=== PATIENT | male | born 1950 | race Caucasian/White ===

== ENCOUNTER 2016-09-16 09:20 | Inpatient (IN) | payer MEDICARE ==
[~2016-09-16] VITALS: Ht 180.3 cm; Wt 84.0 kg
[2016-09-16] MEDS ORDERED: ASPIRIN 81 MG TAB.CHEW PO ONE (09:30)
[2016-09-16 09:50] LABS: CALCIUM 9.1 mg/dL (8.5-10.1); POTASSIUM 3.9 mmol/L (3.5-5.1)
[2016-09-16 09:55] LABS: ALBUMIN 3.8 g/dL (3.4-5.0); TOTAL BILIRUBIN 0.3 mg/dL (0.2-1.0); TOTAL PROTEIN 7.8 g/dL (6.4-8.2)
[2016-09-16] MEDS ORDERED: ONDANSETRON PF 4 MG/2 ML VIAL. IV ONE (10:00)
[2016-09-16] MEDS: NITROGLYCERIN SUBLINGUAL 0.4 MG BOTTLE OF 25. SL PRN ×2 (10:00→10:11)
--- NOTE | 2016-09-16 10:08 | RAD ---
Portable chest, 09/16/2016: History: Chest pain, shortness of breath The heart size and pulmonary vascularity are normal. No pulmonary infiltrates are seen. There is no evidence of pleural fluid. IMPRESSION: No acute cardiopulmonary abnormality is detected
[2016-09-16 10:10] LABS: BASO % 1 % (0-3); EOS % 1 % (0-3); HEMOGLOBIN 15.8 g/dL (13.0-17.5); LYMPH # 1.3 x10^3/uL (1.0-4.8); LYMPH % 13 % (24-48); MEAN CORPUSCULAR HEMOGLOBIN 32 pg (25-35); MEAN CORPUSCULAR HGB CONC 34 g/dL (31-37); MEAN CORPUSCULAR VOLUME 92 fL (79-100); MONO % 8 % (0-9); NEUT % 78 % (31-73); PLATELET COUNT 225 x10^3/uL (140-400); RED BLOOD COUNT 5.01 x10^6/uL (4.30-5.70); RED CELL DISTRIBUTION WIDTH 13.9 % (11.5-14.5); WHITE BLOOD COUNT 10.3 x10^3/uL (4.0-11.0)
[2016-09-16 10:11] LABS: BASO # 0.1 x10^3/uL (0.0-0.2)
[2016-09-16] MEDS: FENTANYL PF 100 MCG/2 ML VIAL. IV PRN ×3 (10:17→13:53)
[2016-09-16 10:31] LABS: INR 1.1 (0.8-1.1); PROTHROMBIN TIME PATIENT 13.3 SEC (11.7-14.0)
--- NOTE | 2016-09-16 10:45 | ED.ADGEN ---
Past Medical History Past Medical History: No Pertinent History Past Surgical History: Tonsillectomy Alcohol Use: Sober Drug Use: None Adult General Chief Complaint Chief Complaint: CHEST PAIN HPI HPI Patient is a 66 year old man, who denies any past history, but states that he has not seen a doctor in "a long time", who presents the emergency department with a complaint of chest pain, pain in the left arm, and then pain that also extended into the right arm, that began around 6:00 this morning. He states he has been coming and going since that time, associated with nausea, denies any shortness of breath, any weakness numbness or tingling, states he's had intermittent headache as well. Denies any injuries, denies any similar symptoms previously. No vomiting, no diarrhea, states he is having some mild epigastric abdominal pain associated with these symptoms, denies any pain at this time. Has not previously had a cardiac evaluation or other evaluation in general for at least the past 6 years. No travel or surgery, history of DVT or PE. Describes the chest pain as a tightness, states that the arm pain began first in the left upper extremity, a sort of aching feeling. Review of Systems Review of Systems Constitutional: Denies fever or chills. [] Eyes: Denies change in visual acuity. [] HENT: Denies nasal congestion or sore throat. [] Respiratory: Denies cough or shortness of breath. [] Cardiovascular: Midsternal chest pain, no edema. Associated with left and right arm pain extending down into his wrist. GI: Denies abdominal pain, nausea, vomiting, bloody stools or diarrhea. [] : Denies dysuria. [] Musculoskeletal: Denies back pain or joint pain. [] Integument: Denies rash. [] Neurologic: Denies headache, focal weakness or sensory changes. [] Endocrine: Denies polyuria or polydipsia. [] Lymphatic: Denies swollen glands. [] Psychiatric: Denies depression or anxiety. [] Current Medications Current Medications Current Medications Medications (Trade) Dose Ordered Sig/Katelyn Start Time Stop Time Status Last Admin Dose Admin Aspirin (Children'S Aspirin) 324 mg 1X ONCE 09/16/16 09:30 09/16/16 09:50 DC 09/16/16 09:58 324 MG Fentanyl Citrate (Fentanyl 2ml Vial) 25 mcg PRN Q15MIN PRN 1/21/17 09:30 09/17/16 09:29 09/16/16 13:53 25 MCG Nitroglycerin (Nitrostat) 0.4 mg PRN Q5MIN PRN 09/16/16 09:30 09/17/16 09:29 09/16/16 10:11 0.4 MG Ondansetron HCl (Zofran) 4 mg 1X ONCE 09/16/16 10:00 09/16/16 10:01 DC 09/16/16 09:59 4 MG Allergies Allergies Allergies Coded Allergies Type Severity Reaction Last Updated Verified calcium carbonate Allergy Intermediate Rash 09/16/16 Yes magnesium Allergy Intermediate Rash 09/16/16 Yes codeine Adverse Reaction Intermediate Nausea 09/16/16 Yes Physical Exam Physical Exam Constitutional: Well developed, well nourished, no acute distress, non-toxic appearance. [] HENT: Normocephalic, atraumatic, bilateral external ears normal, oropharynx moist, no oral exudates, nose normal. [] Eyes: PERRLA, EOMI, conjunctiva normal, no discharge. [] Neck: Normal range of motion, no tenderness, supple, no stridor. [] Cardiovascular:Heart rate regular rhythm, no murmur, S1, S2, no rubs or gallops. Patient with mild anterior chest wall tenderness, not reducing symptoms. [] Lungs & Thorax: Bilateral breath sounds clear to auscultation, no wheezing, rhonchi, rales. No crepitus. [] Abdomen: Bowel sounds normal, soft, no tenderness, no rebound, rigidity, no guarding, no masses, no pulsatile masses. [] Skin: Warm, dry, no erythema, no rash. [] Back: No tenderness, no CVA tenderness. [] Extremities: No tenderness, no cyanosis, no clubbing, ROM intact, no edema. Negative Homans sign. [] Neurologic: Alert and oriented X 3, normal motor function, normal sensory function, no focal deficits noted. [] Psychologic: Affect normal, judgement normal, mood normal. [] Current Patient Data Vital Signs Vital Signs Date Time Temp Pulse Resp B/P Pulse Ox O2 Delivery O2 Flow Rate FiO2 09/16/16 10:30 64 18 147/72 99 Room Air 09/16/16 09:31 98.6 98.6 Lab Values Laboratory Tests Test 09/16/16 09:30 White Blood Count 10.3x10^3/uL (4.0-11.0) Red Blood Count 5.01x10^6/uL (4.30-5.70) Hemoglobin 15.8g/dL (13.0-17.5) Hematocrit 46.0% (39.0-53.0) Mean Corpuscular Volume 92fL (79-100) Mean Corpuscular Hemoglobin 32pg (25-35) Mean Corpuscular Hemoglobin Concent 34g/dL (31-37) Red Cell Distribution Width 13.9% (11.5-14.5) Platelet Count 225x10^3/uL (140-400) Neutrophils (%) (Auto) 78% (31-73) H Lymphocytes (%) (Auto) 13% (24-48) L Monocytes (%) (Auto) 8% (0-9) Eosinophils (%) (Auto) 1% (0-3) Basophils (%) (Auto) 1% (0-3) Neutrophils # (Auto) 8.0x10^3uL (1.8-7.7) H Lymphocytes # (Auto) 1.3x10^3/uL (1.0-4.8) Monocytes # (Auto) 0.8x10^3/uL (0.0-1.1) Eosinophils # (Auto) 0.1x10^3/uL (0.0-0.7) Basophils # (Auto) 0.1x10^3/uL (0.0-0.2) Prothrombin Time 13.3SEC (11.7-14.0) Prothrombin Time INR 1.1 (0.8-1.1) PTT 30SEC (24-38) Sodium Level 139mmol/L (136-145) Potassium Level 3.9mmol/L (3.5-5.1) Chloride Level 103mmol/L (98-107) Carbon Dioxide Level 27mmol/L (21-32) Anion Gap 9 (6-14) Blood Urea Nitrogen 8mg/dL (8-26) Creatinine 1.0mg/dL (0.7-1.3) Estimated GFR (Cockcroft-Gault) 75.0 BUN/Creatinine Ratio 8 (6-20) Glucose Level 127mg/dL (70-99) H Calcium Level 9.1mg/dL (8.5-10.1) Total Bilirubin 0.3mg/dL (0.2-1.0) Aspartate Amino Transferase (AST) 17U/L (15-37) Alanine Aminotransferase (ALT) 18U/L (16-63) Alkaline Phosphatase 68U/L (46-116) Troponin I Quantitative 0.035ng/mL (0.000-0.055) NE-Tvo-L-Type Natriuretic Peptide 76pg/mL (0-124) Total Protein 7.8g/dL (6.4-8.2) Albumin 3.8g/dL (3.4-5.0) Albumin/Globulin Ratio 1.0 (1.0-1.7) Lipase 124U/L (73-393) Laboratory Tests 09/16/16 09:30 Laboratory Tests 09/16/16 09:30 EKG EKG EC: Sinus rhythm, heart rate 60 bpm, upright axis, QTC of 404, GA 140, QRS of 92, mild baseline artifact noted in the anterior septal leads, abnormal ECG, does not meet STEMI criteria. No prior for comparison. As interpreted by me. [] Radiology/Procedures Radiology/Procedures [] [facility] [address] [place] [address] IMAGING REPORT Signed PATIENT: RAMILA PIERSON ACCOUNT: [id number] : 1950 LOCATION: ER AGE: 66 SEX: M EXAM STATUS: PRE ER ORD. PHYSICIAN: KERRIE SELLERS DO REASON: CP PROCEDURE: PORTABLE CHEST 1V Portable chest, 09/16/2016: History: Chest pain, shortness of breath The heart size and pulmonary vascularity are normal. No pulmonary infiltrates are seen. There is no evidence of pleural fluid. IMPRESSION: No acute cardiopulmonary abnormality is detected DICTATED and SIGNED BY: RAFAEL CORONADO MD DATE: 09/16/16 1004 CC: KERRIE SELLERS DO ~ Course & Med Decision Making Course & Med Decision Making Pertinent Labs and Imaging studies reviewed. (See chart for details) Patient's history and examination is concerning for possible ACS. Initial laboratory studies and imaging does not reveal any acutely concerning findings, ECG does not have any specific findings consistent with ischemia, however based on his concerning report of chest pain and lack of previous evaluation, patient is agreeable for admission to the hospital for additional evaluation of his chest pain, which has not recurred. Patient resting comfortably in the ED at this time, in sinus rhythm on the monitor, I did discuss findings as above with Dr. Carias of internal medicine, who accepted the patient to his service as a full admission to the cardiac telemetry floor, consultation was placed for Dr. Mcknight of cardiology. Patient remained stable and comfortable during his ED course, transfer to the floor without issue. Dragon Disclaimer Dragon Disclaimer This electronic medical record was generated, in whole or in part, using a voice recognition dictation system. Departure Impression: Primary Impression: Chest pain Disposition: 09 ADMITTED INPATIENT Admitting Physician: Olivia Carias Condition: IMPROVED Problem Qualifiers Primary Impression: Chest pain Chest pain type: unspecified Qualified Code: R07.9 - Chest pain, unspecified KERRIE SELLERS DO Sep 16, 2016 10:45
--- NOTE | 2016-09-16 12:30 | EKG ---
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
--- NOTE | 2016-09-16 12:31 | EKG ---
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
[2016-09-16] MEDS ORDERED: ONDANSETRON PF 4 MG/2 ML VIAL. IV PRN (12:45)
[2016-09-16] MEDS ORDERED: FENTANYL PF 100 MCG/2 ML VIAL. IV PRN (12:45)
[2016-09-16] MEDS ORDERED: NITROGLYCERIN SUBLINGUAL 0.4 MG BOTTLE OF 25. SL PRN (12:45)
[2016-09-16] MEDS ORDERED: ACETAMINOPHEN 325 MG TABLET. PO PRN (12:45)
--- NOTE | 2016-09-16 13:38 | HP ---
ADMIT DATE: 09/16/2016 CHIEF COMPLAINT: Chest pain. HISTORY OF PRESENT ILLNESS: The patient is a pleasant, healthy 66-year-old male who retired 3 years ago. He states he has not seen a doctor in a while. Basically presents with chest pain, it is radiating to the left arm, sometimes the right arm too. He describes it as pressure-like in sensation. I discussed the case with the ER physician. We are going to admit the patient and rule out acute coronary syndrome. We will be consulting cardiology. PAST MEDICAL HISTORY: Tonsillectomy. ALLERGIES: None. FAMILY HISTORY: He denies any family history of coronary disease. SOCIAL HISTORY: He does smoke. He does not drink or take drugs. MEDICATIONS: Reviewed, please refer to the MRAD. REVIEW OF SYSTEMS: GENERAL: No history of weight change, weakness or fevers. SKIN: No bruising, hair changes or rashes. EYES: No blurred, double or loss of vision. NOSE AND THROAT: No history of nosebleeds, hoarseness or sore throat. HEART: He complains of chest pain. LUNGS: Denies cough, hemoptysis, wheezing or shortness of breath. GASTROINTESTINAL: Denies changes in appetite, nausea, vomiting, diarrhea or constipation. GENITOURINARY: No history of frequency, urgency, hesitancy or nocturia. NEUROLOGIC: Denies history of numbness, tingling, tremor or weakness. PSYCHIATRIC: No history of panic, anxiety or depression. ENDOCRINE: No history of heat or cold intolerance, polyuria or polydipsia. EXTREMITIES: Denies muscle weakness, joint pain, pain on walking or stiffness. PHYSICAL EXAMINATION: VITAL SIGNS: Temperature afebrile, pulse 77, respirations 21, blood pressure 132/90. GENERAL: He is alert, cooperative. HEART: Normal S1, S2. LUNGS: Diminished, but clear. ABDOMEN: Soft, positive bowel sounds. EXTREMITIES: Trace edema. SKIN: No rashes. PSYCHIATRIC: Stable. VASCULAR: Good capillary refill. ENDOCRINE: No thyromegaly. LYMPHATICS: No cervical nodes. HEMATOPOIETIC: No bruise. LABORATORY DATA: Troponin is 0. EKG shows sinus rhythm. ASSESSMENT AND PLAN: Chest pain in a middle-aged male who smokes. Suspect possible acute coronary syndrome. The patient has been admitted. We will check serial enzymes, serial EKGs. Consult cardiology, cardiac monitoring. Daily aspirin. Cigarette cessation education. LORIE LLAMAS DO DR: AWRD/luis JOB#: [id number] / [id number]
[2016-09-16 13:59] VITALS: BP 169/80
[2016-09-16 15:00] VITALS: BP 134/83
[2016-09-16 19:25] VITALS: BP 144/82
[2016-09-16] MEDS ORDERED: HEPARIN for IV BOLUS 10,000 UNIT/10 ML VIAL. IV PRN (19:45)
[2016-09-16] MEDS ORDERED: HEPARIN 25,000UTS/500ML PREMIX 500 ML IV PRN (19:45)
[2016-09-16] MEDS: ZOLPIDEM 5 MG TABLET. PO PRN (19:57)
[2016-09-16 23:24] VITALS: BP 139/75
[2016-09-17] VITALS (7 sets, daily range): BP systolic 118–145; BP diastolic 66–92
[2016-09-17 00:40] LABS: BASO % 1 % (0-3); EOS % 3 % (0-3); HEMATOCRIT 43.7 % (39.0-53.0); HEMOGLOBIN 14.5 g/dL (13.0-17.5); LYMPH # 2.3 x10^3/uL (1.0-4.8); LYMPH % 26 % (24-48); MEAN CORPUSCULAR HEMOGLOBIN 31 pg (25-35); MEAN CORPUSCULAR HGB CONC 33 g/dL (31-37); MEAN CORPUSCULAR VOLUME 94 fL (79-100); MONO % 9 % (0-9); NEUT % 62 % (31-73); PLATELET COUNT 193 x10^3/uL (140-400); RED BLOOD COUNT 4.67 x10^6/uL (4.30-5.70); RED CELL DISTRIBUTION WIDTH 13.7 % (11.5-14.5); WHITE BLOOD COUNT 8.9 x10^3/uL (4.0-11.0)
[2016-09-17 00:55] LABS: CALCIUM 8.7 mg/dL (8.5-10.1); POTASSIUM 4.2 mmol/L (3.5-5.1)
[2016-09-17] MEDS: DIPHENHYDRAMINE HCL 25 MG CAPSULE PO PRN ×2 (03:16→20:46)
--- NOTE | 2016-09-17 08:02 | EKG ---
[facility] [address] [place] [address] Test Date: 2016-09-17 Test Time: 07:54:46 Pat Name: RAMILA PIERSON Department: Room: 205 1 Gender: M Enrollment Eligibility Representative: : 1950 Requested By: KERRIE SELLERS Order Number: [id number] Reading MD: Maame Souza Measurements Intervals [place] Rate: 65 P: 0 [place]: 142 QRS: 31 QRSD: 88 T: 41 QT: 402 QTc: 419 Interpretive Statements SINUS RHYTHM NORMAL ECG RI6.01 No previous ECG available for comparison Electronically Signed On 09-18-2016 0:44:23 BUSINESS COMPUTERS TEACHER by Maame Souza
[2016-09-17] MEDS: MORPHINE SULFATE 2 MG/ML DISP.SYRIN. IV PRN ×2 (11:12→16:58)
[2016-09-17] MEDS ORDERED: NITROGLYCERIN SUBLINGUAL 0.4 MG BOTTLE OF 25. SL PRN (11:15)
[2016-09-17] MEDS ORDERED: MORPHINE SULFATE 4 MG/ML DISP.SYRIN. IV PRN (11:15)
--- NOTE | 2016-09-17 11:36 | PDOC2 ---
CONSULT Date of Consult Date of Consult DATE: 09/17/16 TIME: 11:29 Reason for Consult Reason for Consult: NSTEMI Referring Physician Referring Physician: Dr. Carias Identification/Chief Complaint Chief Complaint Chest pain Source Source: Chart review, Patient History of Present Illness Reason for Visit: 66-year-old male without any previous cardiac history presented with left-sided chest pressure radiating to her left shoulder, 6-8/10 severity waxing and waning in nature associated with mild shortness of breath on minor exertion. He denied any orthopnea/PND, palpitations or syncope. He stated that he had cardiac catheterization in the nineties and was told he did not have any coronary artery disease at that time. Past Medical History Past Medical History Patient was previously diagnosed with hypertension but presently not on any anti -hypertensives. Past Surgical History Past Surgical History: Tonsillectomy Family History Family History Negative for premature coronary artery disease Social History Social History Patient smokes one to one and a half pack cigarettes daily but denied any alcohol or drug abuse Current Problem List Problem List Problems Medical Problems: (1) Chest pain Status: Acute Current Medications Current Medications Current Medications Aspirin (Children'S Aspirin) 324 mg 1X ONCE PO Last administered on 09/16/16 09:58; Start 09/16/16 at 09:30; Stop 09/16/16 at 09:50; Status DC Nitroglycerin (Nitrostat) 0.4 mg PRN Q5MIN PRN SL CP RATING > 1/10 Last administered on 09/16/16 10:11; Start 09/16/16 at 09:30; Stop 09/17/16 at 09:29 ; Status DC Fentanyl Citrate (Fentanyl 2ml Vial) 25 mcg PRN Q15MIN PRN IV PAIN GREATER THAN 3/10 Last administered on 09/16/16 13:53; Start 09/16/16 at 09:30; Stop at 09:29; Status DC Ondansetron HCl (Zofran) 4 mg 1X ONCE IV Last administered on 09/16/16 09:59 ; Start 09/16/16 at 10:00; Stop 09/16/16 at 10:01; Status DC Ondansetron HCl (Zofran) 4 mg PRN Q8HRS PRN IV NAUSEA/VOMITING; Start 09/16/16 at 12:45; Stop 09/17/16 at 12:44 Fentanyl Citrate (Fentanyl 2ml Vial) 50 mcg PRN Q2HR PRN IV PAIN Last administered on 09/17/16 08:25; Start 09/16/16 at 12:45; Stop 09/17/16 at 12:44 Acetaminophen (Tylenol) 650 mg PRN Q4HRS PRN PO FEVER; Start 09/16/16 at 12:45 ; Stop 09/17/16 at 12:44 Nitroglycerin (Nitrostat) 0.4 mg PRN Q5MIN PRN SL CHEST PAIN; Start 09/16/16 at 12:45; Stop 09/17/16 at 12:44 Zolpidem Tartrate (Ambien) 5 mg PRN QHS PRN PO INSOMNIA Last administered on 19:57; Start 09/16/16 at 19:30 Diphenhydramine HCl 25 mg 25 mg PRN Q6HRS PRN PO ITCHING Last administered on 03:16; Start 09/16/16 at 19:30 Heparin Sodium/ Dextrose 500 ml @ 0 mls/hr CONT PRN IV SEE I/O RECORD Last administered on 09/16/16 19:59; Start 09/16/16 at 19:45 Heparin Sodium (Porcine) 2,050 unit PRN Q6HRS PRN IV FOR UFH LEVEL LESS THAN 0.2 Last administered on 09/17/16 03:16; Start 09/16/16 at 19:45 Morphine Sulfate 2 mg PRN Q2HR PRN IV PAIN Last administered on 09/17/16 11:12 ; Start 09/17/16 at 11:15 Morphine Sulfate 4 mg PRN Q2HR PRN IV PAIN; Start 09/17/16 at 11:15 Nitroglycerin (Nitrostat) 0.4 mg PRN Q5MIN PRN SL CHEST PAIN; Start 09/17/16 at 11:15 Allergies Allergies: Coded Allergies: calcium carbonate (Verified Allergy, Intermediate, Rash, 09/16/16) magnesium (Verified Allergy, Intermediate, Rash, 09/16/16) codeine (Verified Adverse Reaction, Intermediate, Nausea, 09/16/16) ROS PSYCHOLOGICAL ROS: No: Hallucinations Eyes: No Loss of vision HEENT: No: Epistaxis Respiratory: YES: Shortness of breath, No: Hemoptysis Cardiovascular: yes Chest Pain, No Palpitations Gastrointestinal: No Diarrhea, No Vomiting Genitourinary: No Hematuria Neurological: No Seizures Skin: No Rash Physical Exam General: Alert, Oriented X3 HEENT: Atraumatic, PERRLA Lungs: Clear to auscultation Heart: Regular rate Abdomen: Soft Extremities: No edema Skin: No rashes Psych/Mental Status: Mood NL Vitals VITALS Vital Signs Date Time Temp Pulse Resp B/P Pulse Ox O2 Delivery O2 Flow Rate FiO2 09/17/16 11:12 18 94 Room Air 09/17/16 07:00 98.3 62 139/78 98.3 Labs Labs Laboratory Tests Test 09/16/16 09:30 09/16/16 18:45 09/17/16 00:30 09/17/16 00:34 White Blood Count 10.3x10^3/uL (4.0-11.0) 8.9x10^3/uL (4.0-11.0) Red Blood Count 5.01x10^6/uL (4.30-5.70) 4.67x10^6/uL (4.30-5.70) Hemoglobin 15.8g/dL (13.0-17.5) 14.5g/dL (13.0-17.5) Hematocrit 46.0% (39.0-53.0) 43.7% (39.0-53.0) Mean Corpuscular Volume 92fL (79-100) 94fL (79-100) Mean Corpuscular Hemoglobin 32pg (25-35) 31pg (25-35) Mean Corpuscular Hemoglobin Concent 34g/dL (31-37) 33g/dL (31-37) Red Cell Distribution Width 13.9% (11.5-14.5) 13.7% (11.5-14.5) Platelet Count 225x10^3/uL (140-400) 193x10^3/uL (140-400) Neutrophils (%) (Auto) 78% (31-73) 62% (31-73) Lymphocytes (%) (Auto) 13% (24-48) 26% (24-48) Monocytes (%) (Auto) 8% (0-9) 9% (0-9) Eosinophils (%) (Auto) 1% (0-3) 3% (0-3) Basophils (%) (Auto) 1% (0-3) 1% (0-3) Neutrophils # (Auto) 8.0x10^3uL (1.8-7.7) 5.5x10^3uL (1.8-7.7) Lymphocytes # (Auto) 1.3x10^3/uL (1.0-4.8) 2.3x10^3/uL (1.0-4.8) Monocytes # (Auto) 0.8x10^3/uL (0.0-1.1) 0.8x10^3/uL (0.0-1.1) Eosinophils # (Auto) 0.1x10^3/uL (0.0-0.7) 0.2x10^3/uL (0.0-0.7) Basophils # (Auto) 0.1x10^3/uL (0.0-0.2) 0.0x10^3/uL (0.0-0.2) Prothrombin Time 13.3SEC (11.7-14.0) Prothromb Time International Ratio 1.1 (0.8-1.1) Activated Partial Thromboplast Time 30SEC (24-38) Sodium Level 139mmol/L (136-145) 143mmol/L (136-145) Potassium Level 3.9mmol/L (3.5-5.1) 4.2mmol/L (3.5-5.1) Chloride Level 103mmol/L (98-107) 107mmol/L (98-107) Carbon Dioxide Level 27mmol/L (21-32) 27mmol/L (21-32) Anion Gap 9 (6-14) 9 (6-14) Blood Urea Nitrogen 8mg/dL (8-26) 11mg/dL (8-26) Creatinine 1.0mg/dL (0.7-1.3) 1.0mg/dL (0.7-1.3) Estimated GFR (Cockcroft-Gault) 75.0 75.0 BUN/Creatinine Ratio 8 (6-20) Glucose Level 127mg/dL (70-99) 104mg/dL (70-99) Calcium Level 9.1mg/dL (8.5-10.1) 8.7mg/dL (8.5-10.1) Total Bilirubin 0.3mg/dL (0.2-1.0) Aspartate Amino Transf (AST/SGOT) 17U/L (15-37) Alanine Aminotransferase (ALT/SGPT) 18U/L (16-63) Alkaline Phosphatase 68U/L (46-116) Troponin I Quantitative 0.035ng/mL (0.000-0.055) 1.202ng/mL (0.000-0.055) 1.881ng/mL (0.000-0.055) UZ-Jsm-O-Type Natriuretic Peptide 76pg/mL (0-124) Total Protein 7.8g/dL (6.4-8.2) Albumin 3.8g/dL (3.4-5.0) Albumin/Globulin Ratio 1.0 (1.0-1.7) Lipase 124U/L (73-393) Test 09/17/16 02:30 09/17/16 09:20 Heparin Anti-Xa Act, Unfractionated 0.18IU/mL (0.30-0.70) 0.58IU/mL (0.30-0.70) Laboratory Tests Test 09/16/16 18:45 09/17/16 00:30 09/17/16 00:34 09/17/16 02:30 Troponin I Quantitative 1.202ng/mL (0.000-0.055) 1.881ng/mL (0.000-0.055) White Blood Count 8.9x10^3/uL (4.0-11.0) Red Blood Count 4.67x10^6/uL (4.30-5.70) Hemoglobin 14.5g/dL (13.0-17.5) Hematocrit 43.7% (39.0-53.0) Mean Corpuscular Volume 94fL (79-100) Mean Corpuscular Hemoglobin 31pg (25-35) Mean Corpuscular Hemoglobin Concent 33g/dL (31-37) Red Cell Distribution Width 13.7% (11.5-14.5) Platelet Count 193x10^3/uL (140-400) Neutrophils (%) (Auto) 62% (31-73) Lymphocytes (%) (Auto) 26% (24-48) Monocytes (%) (Auto) 9% (0-9) Eosinophils (%) (Auto) 3% (0-3) Basophils (%) (Auto) 1% (0-3) Neutrophils # (Auto) 5.5x10^3uL (1.8-7.7) Lymphocytes # (Auto) 2.3x10^3/uL (1.0-4.8) Monocytes # (Auto) 0.8x10^3/uL (0.0-1.1) Eosinophils # (Auto) 0.2x10^3/uL (0.0-0.7) Basophils # (Auto) 0.0x10^3/uL (0.0-0.2) Sodium Level 143mmol/L (136-145) Potassium Level 4.2mmol/L (3.5-5.1) Chloride Level 107mmol/L (98-107) Carbon Dioxide Level 27mmol/L (21-32) Anion Gap 9 (6-14) Blood Urea Nitrogen 11mg/dL (8-26) Creatinine 1.0mg/dL (0.7-1.3) Estimated GFR (Cockcroft-Gault) 75.0 Glucose Level 104mg/dL (70-99) Calcium Level 8.7mg/dL (8.5-10.1) Heparin Anti-Xa Act, Unfractionated 0.18IU/mL (0.30-0.70) Test 09/17/16 09:20 Heparin Anti-Xa Act, Unfractionated 0.58IU/mL (0.30-0.70) Assessment/Plan Assessment/Plan 1. Acute non-ST elevation myocardial infarction: Patient has ongoing chest pain. We will proceed with cardiac catheterization and possible angioplasty. Risks and benefits were explained. Continue heparin infusion per protocol, start aspirin, beta blockers and statins. 2. Hypertension: Controlled 3. Tobacco abuse: Advised smoking cessation Thank you for your consultation ELLEN APPIAH MD Sep 17, 2016 11:36
[2016-09-17] MEDS ORDERED: ANTI-COAG MONITOR BY PHARMACY. MC PRN (11:45)
[2016-09-17 12:30] LABS: CHOLESTEROL/HDL RATIO 5.4
[2016-09-17] MEDS: ASPIRIN ENTERIC COATED 325 MG TABLET.DR. PO SCH (12:30)
[2016-09-17] MEDS: METOPROLOL TART IMMED RELEASE 25 MG TABLET PO SCH ×2 (12:33→20:48)
[2016-09-17] MEDS ORDERED: LIDOCAINE 2% 20 ML VIAL. ONE (12:35)
[2016-09-17] MEDS ORDERED: IOHEXOL 300 MG/ML 100ML VIAL. ONE (12:35)
[2016-09-17] MEDS ORDERED: VERAPAMIL 5 MG/2 ML VIAL. ONE (12:55)
[2016-09-17] MEDS ORDERED: HEPARIN for IV BOLUS 10,000 UNIT/10 ML VIAL. ONE (12:55)
[2016-09-17] MEDS ORDERED: MIDAZOLAM HCL/PF 5 MG/5 ML VIAL ONE (12:55)
[2016-09-17] MEDS ORDERED: NITROGLYCERIN 200 MCG/2 ML SYRINGE FOR CATH/VASC LAB. ONE (12:55)
[2016-09-17] MEDS ORDERED: FENTANYL PF 250 MCG/5 ML VIAL. ONE (12:55)
[2016-09-17] MEDS ORDERED: HEPARIN for IV BOLUS 10,000 UNIT/10 ML VIAL. IART ONE (13:15)
[2016-09-17] MEDS ORDERED: NITROGLYCERIN 200 MCG/2 ML SYRINGE FOR CATH/VASC LAB. IART ONE (13:15)
[2016-09-17] MEDS ORDERED: IOHEXOL 300 MG/ML 100ML VIAL. IART ONE (13:15)
[2016-09-17] MEDS ORDERED: LIDOCAINE 2% 20 ML VIAL. IJ ONE (13:15)
[2016-09-17] MEDS ORDERED: FENTANYL PF 250 MCG/5 ML VIAL. IV ONE (13:15)
[2016-09-17] MEDS ORDERED: MIDAZOLAM HCL/PF 5 MG/5 ML VIAL IV ONE (13:15)
[2016-09-17] MEDS ORDERED: VERAPAMIL 5 MG/2 ML VIAL. IART ONE (13:15)
[2016-09-17] MEDS ORDERED: CONTRAST GIVEN MC PRN (13:15)
--- NOTE | 2016-09-17 13:16 | PDOC ---
MODERATE SEDATION ASSESSMENT RISKS/ALTERNATIVES Risks/Alternatives Risks and alternatives of this type of sedation and procedure discussed with: RISK/ALTERNATIVES: Patient H & P ON CHART H & P H & P on chart and reviewed for co-morbid conditions and appropriate labs. H&P ON CHART: Yes STATUS PREG STATUS ASSESSED: N/A MEDS/ALLERGIES REVIEWED Meds/Allergies Reviewed Medications and Allergies including time and route of recently administered narcotics and sedatives. MEDS/ALLERGIES REVIEWED: Yes ASA RATING ASA RATING: II AIRWAY ASSESSMENT Airway Assessment Airway patency, oral function limitations, presence of caps, crowns, dentures, partials, and ability to extend neck assessed. AIRWAY ASSESSMENT: Yes MALLAMPATI SCORE MALLAMPATI SCORE: II PRE-SEDATION ASSESSMENT PRE-SEDATION ASSESSMENT: Yes ELLEN APPIAH MD Sep 17, 2016 13:16
[2016-09-17] MEDS: IV 1/2 NORMAL SALINE 1,000 ML IV SCH (13:50)
--- NOTE | 2016-09-17 14:02 | CARD ---
APPROVED REPORT Procedure(s) performed: Left heart catheterization, selective coronary angiography and left ventricul ography via the right transradial approach INDICATION The indication(s) include : non-STEMI . PROCEDURE NARRATIVE After explaining the risks, benefits and alternative options, informed consent was obtained from geni ent. Patient was brought to the cardiac Software Development Coordinator and right wrist was prepped and draped in the usual fashion after confirming a positive modified Ryan's test. Arterial access was obtained in the [facility] t radial artery and a 6 Panamanian sheath was inserted. 6 Panamanian Jose catheter was used to perform janae ective angiography of the left and right coronary arteries. 6 [place]amanian pigtail catheter was used to pe rform left ventriculography. Patient tolerated the procedure well. Hemostasis was achieved using TR band. There were no immediate complications. The following findings were noted. FINDINGS 1. Hemodynamics: Left ventricular end-diastolic pressure of 17 mmHg. No pullback gradient across th e aortic valve. 2. Left ventriculography: Normal left ventricle systolic function with ejection fraction estimated at 65%. No significant mitral regurgitation seen. 3. Coronary angiography: a. The left main coronary artery arose from the left sinus of Valsalva, gave rise to the left anteri or descending and left circumflex arteries and did not show any significant stenosis. b. The left anterior descending artery showed 30% stenosis in the midsegment with moderate diffuse d isease in the apical segment. c. The left circumflex artery did not show any significant stenosis. d. The right coronary artery was a large and dominant vessel arising from the right sinus of Valsalv a that showed 30% stenosis in the proximal to midsegment. Conclusion 1. Nonobstructive coronary artery disease 2. Normal left ventricle systolic function with ejection fraction estimated at 65%. Recommendations Medical Therapy
--- NOTE | 2016-09-17 15:14 | PDOC ---
PROGRESS NOTES Chief Complaint Chief Complaint - Chest pain - Elevated troponin - HTN, untreated - Tobaccoism - Rule out acute coronary syndrome History of Present Illness History of Present Illness 66 year old male examined while seated in bed with friends in room. Patient states his chest pain is somewhat improved but still present and discussed upcoming planned cardiac cath by cardiology. Vitals Vitals Vital Signs Date Time Temp Pulse Resp B/P Pulse Ox O2 Delivery O2 Flow Rate FiO2 09/17/16 13:46 59 16 97 Nasal Cannula 4.0 09/17/16 13:15 164/67 09/17/16 11:00 97.9 97.9 Physical Exam General: Alert, Oriented X3 Heart: Regular rate, Other (No rubs or gallops) Lungs: Clear, Other (No wheezes/crackles) Abdomen: Normal bowel sounds, Soft, No tenderness Extremities: No clubbing, No cyanosis, No edema Skin: No rashes, No significant lesion Labs LABS Laboratory Tests Test 09/16/16 18:45 09/17/16 00:30 09/17/16 00:34 09/17/16 02:30 Troponin I Quantitative 1.202ng/mL (0.000-0.055) 1.881ng/mL (0.000-0.055) White Blood Count 8.9x10^3/uL (4.0-11.0) Red Blood Count 4.67x10^6/uL (4.30-5.70) Hemoglobin 14.5g/dL (13.0-17.5) Hematocrit 43.7% (39.0-53.0) Mean Corpuscular Volume 94fL (79-100) Mean Corpuscular Hemoglobin 31pg (25-35) Mean Corpuscular Hemoglobin Concent 33g/dL (31-37) Red Cell Distribution Width 13.7% (11.5-14.5) Platelet Count 193x10^3/uL (140-400) Neutrophils (%) (Auto) 62% (31-73) Lymphocytes (%) (Auto) 26% (24-48) Monocytes (%) (Auto) 9% (0-9) Eosinophils (%) (Auto) 3% (0-3) Basophils (%) (Auto) 1% (0-3) Neutrophils # (Auto) 5.5x10^3uL (1.8-7.7) Lymphocytes # (Auto) 2.3x10^3/uL (1.0-4.8) Monocytes # (Auto) 0.8x10^3/uL (0.0-1.1) Eosinophils # (Auto) 0.2x10^3/uL (0.0-0.7) Basophils # (Auto) 0.0x10^3/uL (0.0-0.2) Sodium Level 143mmol/L (136-145) Potassium Level 4.2mmol/L (3.5-5.1) Chloride Level 107mmol/L (98-107) Carbon Dioxide Level 27mmol/L (21-32) Anion Gap 9 (6-14) Blood Urea Nitrogen 11mg/dL (8-26) Creatinine 1.0mg/dL (0.7-1.3) Estimated GFR (Cockcroft-Gault) 75.0 Glucose Level 104mg/dL (70-99) Calcium Level 8.7mg/dL (8.5-10.1) Triglycerides Level 108mg/dL (0-150) Cholesterol Level 178mg/dL (0-200) LDL Cholesterol, Calculated 123mg/dL (0-100) VLDL Cholesterol, Calculated 22mg/dL (0-40) HDL Cholesterol 33mg/dL (40-60) Cholesterol/HDL Ratio 5.4 Heparin Anti-Xa Act, Unfractionated 0.18IU/mL (0.30-0.70) Test 09/17/16 09:20 Heparin Anti-Xa Act, Unfractionated 0.58IU/mL (0.30-0.70) Review of Systems Review of Systems Chest pain improved Denies SOA Assessment and Plan Assessmemt and Plan Assessment: - Chest pain - Elevated troponin - HTN, untreated - Tobaccoism - Rule out acute coronary syndrome Plan: - Cardiac workup and catheterization pending. Awaiting further cardiology input - Advance diet as tolerated after procedure - Control pain - Recheck labs in a.m. - PT/OT as tolerated - Appreciate subspecialty input Problems: Comment Review of Relevant I have reviewed the following items steven (where applicable) has been applied. Labs Laboratory Tests Test 09/16/16 09:30 09/16/16 18:45 09/17/16 00:30 09/17/16 00:34 White Blood Count 10.3x10^3/uL (4.0-11.0) 8.9x10^3/uL (4.0-11.0) Red Blood Count 5.01x10^6/uL (4.30-5.70) 4.67x10^6/uL (4.30-5.70) Hemoglobin 15.8g/dL (13.0-17.5) 14.5g/dL (13.0-17.5) Hematocrit 46.0% (39.0-53.0) 43.7% (39.0-53.0) Mean Corpuscular Volume 92fL (79-100) 94fL (79-100) Mean Corpuscular Hemoglobin 32pg (25-35) 31pg (25-35) Mean Corpuscular Hemoglobin Concent 34g/dL (31-37) 33g/dL (31-37) Red Cell Distribution Width 13.9% (11.5-14.5) 13.7% (11.5-14.5) Platelet Count 225x10^3/uL (140-400) 193x10^3/uL (140-400) Neutrophils (%) (Auto) 78% (31-73) 62% (31-73) Lymphocytes (%) (Auto) 13% (24-48) 26% (24-48) Monocytes (%) (Auto) 8% (0-9) 9% (0-9) Eosinophils (%) (Auto) 1% (0-3) 3% (0-3) Basophils (%) (Auto) 1% (0-3) 1% (0-3) Neutrophils # (Auto) 8.0x10^3uL (1.8-7.7) 5.5x10^3uL (1.8-7.7) Lymphocytes # (Auto) 1.3x10^3/uL (1.0-4.8) 2.3x10^3/uL (1.0-4.8) Monocytes # (Auto) 0.8x10^3/uL (0.0-1.1) 0.8x10^3/uL (0.0-1.1) Eosinophils # (Auto) 0.1x10^3/uL (0.0-0.7) 0.2x10^3/uL (0.0-0.7) Basophils # (Auto) 0.1x10^3/uL (0.0-0.2) 0.0x10^3/uL (0.0-0.2) Prothrombin Time 13.3SEC (11.7-14.0) Prothromb Time International Ratio 1.1 (0.8-1.1) Activated Partial Thromboplast Time 30SEC (24-38) Sodium Level 139mmol/L (136-145) 143mmol/L (136-145) Potassium Level 3.9mmol/L (3.5-5.1) 4.2mmol/L (3.5-5.1) Chloride Level 103mmol/L (98-107) 107mmol/L (98-107) Carbon Dioxide Level 27mmol/L (21-32) 27mmol/L (21-32) Anion Gap 9 (6-14) 9 (6-14) Blood Urea Nitrogen 8mg/dL (8-26) 11mg/dL (8-26) Creatinine 1.0mg/dL (0.7-1.3) 1.0mg/dL (0.7-1.3) Estimated GFR (Cockcroft-Gault) 75.0 75.0 BUN/Creatinine Ratio 8 (6-20) Glucose Level 127mg/dL (70-99) 104mg/dL (70-99) Calcium Level 9.1mg/dL (8.5-10.1) 8.7mg/dL (8.5-10.1) Total Bilirubin 0.3mg/dL (0.2-1.0) Aspartate Amino Transf (AST/SGOT) 17U/L (15-37) Alanine Aminotransferase (ALT/SGPT) 18U/L (16-63) Alkaline Phosphatase 68U/L (46-116) Troponin I Quantitative 0.035ng/mL (0.000-0.055) 1.202ng/mL (0.000-0.055) 1.881ng/mL (0.000-0.055) LE-Fhc-I-Type Natriuretic Peptide 76pg/mL (0-124) Total Protein 7.8g/dL (6.4-8.2) Albumin 3.8g/dL (3.4-5.0) Albumin/Globulin Ratio 1.0 (1.0-1.7) Lipase 124U/L (73-393) Triglycerides Level 108mg/dL (0-150) Cholesterol Level 178mg/dL (0-200) LDL Cholesterol, Calculated 123mg/dL (0-100) VLDL Cholesterol, Calculated 22mg/dL (0-40) HDL Cholesterol 33mg/dL (40-60) Cholesterol/HDL Ratio 5.4 Test 09/17/16 02:30 09/17/16 09:20 Heparin Anti-Xa Act, Unfractionated 0.18IU/mL (0.30-0.70) 0.58IU/mL (0.30-0.70) Laboratory Tests Test 09/16/16 18:45 09/17/16 00:30 09/17/16 00:34 09/17/16 02:30 Troponin I Quantitative 1.202ng/mL (0.000-0.055) 1.881ng/mL (0.000-0.055) White Blood Count 8.9x10^3/uL (4.0-11.0) Red Blood Count 4.67x10^6/uL (4.30-5.70) Hemoglobin 14.5g/dL (13.0-17.5) Hematocrit 43.7% (39.0-53.0) Mean Corpuscular Volume 94fL (79-100) Mean Corpuscular Hemoglobin 31pg (25-35) Mean Corpuscular Hemoglobin Concent 33g/dL (31-37) Red Cell Distribution Width 13.7% (11.5-14.5) Platelet Count 193x10^3/uL (140-400) Neutrophils (%) (Auto) 62% (31-73) Lymphocytes (%) (Auto) 26% (24-48) Monocytes (%) (Auto) 9% (0-9) Eosinophils (%) (Auto) 3% (0-3) Basophils (%) (Auto) 1% (0-3) Neutrophils # (Auto) 5.5x10^3uL (1.8-7.7) Lymphocytes # (Auto) 2.3x10^3/uL (1.0-4.8) Monocytes # (Auto) 0.8x10^3/uL (0.0-1.1) Eosinophils # (Auto) 0.2x10^3/uL (0.0-0.7) Basophils # (Auto) 0.0x10^3/uL (0.0-0.2) Sodium Level 143mmol/L (136-145) Potassium Level 4.2mmol/L (3.5-5.1) Chloride Level 107mmol/L (98-107) Carbon Dioxide Level 27mmol/L (21-32) Anion Gap 9 (6-14) Blood Urea Nitrogen 11mg/dL (8-26) Creatinine 1.0mg/dL (0.7-1.3) Estimated GFR (Cockcroft-Gault) 75.0 Glucose Level 104mg/dL (70-99) Calcium Level 8.7mg/dL (8.5-10.1) Triglycerides Level 108mg/dL (0-150) Cholesterol Level 178mg/dL (0-200) LDL Cholesterol, Calculated 123mg/dL (0-100) VLDL Cholesterol, Calculated 22mg/dL (0-40) HDL Cholesterol 33mg/dL (40-60) Cholesterol/HDL Ratio 5.4 Heparin Anti-Xa Act, Unfractionated 0.18IU/mL (0.30-0.70) Test 09/17/16 09:20 Heparin Anti-Xa Act, Unfractionated 0.58IU/mL (0.30-0.70) Medications Current Medications Aspirin (Children'S Aspirin) 324 mg 1X ONCE PO Last administered on 09/16/16 09:58; Start 09/16/16 at 09:30; Stop 09/16/16 at 09:50; Status DC Nitroglycerin (Nitrostat) 0.4 mg PRN Q5MIN PRN SL CP RATING > 1/10 Last administered on 09/16/16 10:11; Start 09/16/16 at 09:30; Stop 09/17/16 at 09:29 ; Status DC Fentanyl Citrate (Fentanyl 2ml Vial) 25 mcg PRN Q15MIN PRN IV PAIN GREATER THAN 3/10 Last administered on 09/16/16 13:53; Start 09/16/16 at 09:30; Stop at 09:29; Status DC Ondansetron HCl (Zofran) 4 mg 1X ONCE IV Last administered on 09/16/16 09:59 ; Start 09/16/16 at 10:00; Stop 09/16/16 at 10:01; Status DC Ondansetron HCl (Zofran) 4 mg PRN Q8HRS PRN IV NAUSEA/VOMITING; Start 09/16/16 at 12:45; Stop 09/17/16 at 12:44; Status DC Fentanyl Citrate (Fentanyl 2ml Vial) 50 mcg PRN Q2HR PRN IV PAIN Last administered on 09/17/16 08:25; Start 09/16/16 at 12:45; Stop 09/17/16 at 12:44 ; Status DC Acetaminophen (Tylenol) 650 mg PRN Q4HRS PRN PO FEVER; Start 09/16/16 at 12:45 ; Stop 09/17/16 at 12:44; Status DC Nitroglycerin (Nitrostat) 0.4 mg PRN Q5MIN PRN SL CHEST PAIN; Start 09/16/16 at 12:45; Stop 09/17/16 at 12:44; Status DC Zolpidem Tartrate (Ambien) 5 mg PRN QHS PRN PO INSOMNIA Last administered on 19:57; Start 09/16/16 at 19:30 Diphenhydramine HCl 25 mg 25 mg PRN Q6HRS PRN PO ITCHING Last administered on 03:16; Start 09/16/16 at 19:30 Heparin Sodium/ Dextrose 500 ml @ 0 mls/hr CONT PRN IV SEE I/O RECORD Last administered on 09/16/16 19:59; Start 09/16/16 at 19:45 Heparin Sodium (Porcine) 2,050 unit PRN Q6HRS PRN IV FOR UFH LEVEL LESS THAN 0.2 Last administered on 09/17/16 03:16; Start 09/16/16 at 19:45 Morphine Sulfate 2 mg PRN Q2HR PRN IV PAIN Last administered on 09/17/16 11:12 ; Start 09/17/16 at 11:15 Morphine Sulfate 4 mg PRN Q2HR PRN IV PAIN; Start 09/17/16 at 11:15 Nitroglycerin (Nitrostat) 0.4 mg PRN Q5MIN PRN SL CHEST PAIN; Start 09/17/16 at 11:15 Aspirin (Ecotrin) 325 mg [id number] PO Last administered on 09/17/16 12:30; Start 09/17/16 at 11:45 Metoprolol Tartrate (Lopressor) 12.5 mg BID PO Last administered on 09/17/16 12:33; Start 09/17/16 at 11:45 Atorvastatin Calcium (Lipitor) 20 mg QHS PO ; Start 09/17/16 at 21:00 Info (Anti-Coagulation Monitoring By Pharmacy) 1 each PRN DAILY PRN MC SEE COMMENTS; Start 09/17/16 at 11:45 Iohexol 100 ml 100 ml STK-MED ONCE .ROUTE ; Start 09/17/16 at 12:35; Stop at 12:36; Status DC Heparin Sodium/ Sodium Chloride 1,000 ml @ As Directed STK-MED ONCE .ROUTE ; Start 09/17/16 at 12:35; Stop 09/17/16 at 12:36; Status DC Lidocaine HCl 20 ml STK-MED ONCE .ROUTE ; Start 09/17/16 at 12:35; Stop at 12:36; Status DC Nitroglycerin (Nitroglycerin) 200 mcg STK-MED ONCE .ROUTE ; Start 09/17/16 at 12 :55; Stop 09/17/16 at 12:56; Status DC Verapamil HCl (Verapamil) 5 mg STK-MED ONCE .ROUTE ; Start 09/17/16 at 12:55; Stop 09/17/16 at 12:56; Status DC Heparin Sodium (Porcine) 10,000 unit STK-MED ONCE .ROUTE ; Start 09/17/16 at 12: 55; Stop 09/17/16 at 12:56; Status DC Midazolam HCl (Versed) 5 mg STK-MED ONCE .ROUTE ; Start 09/17/16 at 12:55; Stop 09/17/16 at 12:56; Status DC Fentanyl Citrate (Fentanyl 5ml Vial) 250 mcg STK-MED ONCE .ROUTE ; Start at 12:55; Stop 09/17/16 at 12:56; Status DC Nitroglycerin (Nitroglycerin) 200 mcg 1X ONCE IART Last administered on t 13:15; Start 09/17/16 at 13:15; Stop 09/17/16 at 13:16; Status DC Verapamil HCl (Verapamil) 2.5 mg 1X ONCE IART Last administered on 09/17/16 13:15; Start 09/17/16 at 13:15; Stop 09/17/16 at 13:16; Status DC Heparin Sodium (Porcine) 2,500 unit 1X ONCE IART Last administered on 13:15; Start 09/17/16 at 13:15; Stop 09/17/16 at 13:16; Status DC Midazolam HCl (Versed) 5 mg 1X ONCE IV Last administered on 09/17/16 13:15; Start 09/17/16 at 13:15; Stop 09/17/16 at 13:16; Status DC Fentanyl Citrate (Fentanyl 5ml Vial) 250 mcg 1X ONCE IV Last administered on 13:15; Start 09/17/16 at 13:15; Stop 09/17/16 at 13:16; Status DC Iohexol (Omnipaque 300 Mg/ml) 100 ml 1X ONCE IART Last administered on 13:15; Start 09/17/16 at 13:15; Stop 09/17/16 at 13:16; Status DC Lidocaine HCl 20 ml 1X ONCE IJ Last administered on 09/17/16 13:15; Start at 13:15; Stop 09/17/16 at 13:16; Status DC Info 1 each 1 each PRN DAILY PRN MC SEE COMMENTS; Start 09/17/16 at 13:15; Stop 09/19/16 at 13:14 Sodium Chloride (Iv Sodium Chloride 0.45%) 1,000 ml @ 60 mls/hr [id number] IV ; Start 09/17/16 at 13:50 Vitals/I & O Vital Sign - Last 24 Hours 09/16/16 09/16/16 09/16/16 09/16/16 16:08 19:25 20:40 23:24 Temp 98.0 98.1 98.0 98.1 Pulse 75 68 Resp 24 20 B/P 144/82 139/75 Pulse Ox 95 94 O2 Delivery Room Air Room Air Room Air Room Air 09/17/16 09/17/16 09/17/16 09/17/16 03:00 07:00 08:25 08:55 Temp 98.4 98.3 98.4 98.3 Pulse 68 62 Resp 24 20 18 18 B/P 145/80 139/78 Pulse Ox 94 95 94 94 O2 Delivery Room Air Room Air Room Air Room Air 09/17/16 09/17/16 09/17/16 09/17/16 11:00 11:12 11:42 12:33 Temp 97.9 97.9 Pulse 61 61 Resp 18 18 18 B/P 138/76 138/76 Pulse Ox 96 94 94 O2 Delivery Room Air Room Air Room Air 09/17/16 09/17/16 09/17/16 13:15 13:15 13:46 Pulse 74 59 Resp 16 16 B/P 164/67 Pulse Ox 97 97 O2 Delivery Room Air Nasal Cannula O2 Flow Rate 4.0 Intake and Output 09/16/16 09/16/16 09/17/16 15:00 23:00 07:00 Intake Total 610 ml 271.3 ml Output Total 1000 ml Balance 610 ml -728.7 ml LORIE LLAMAS III DO Sep 17, 2016 15:14
[2016-09-17] MEDS: ZOLPIDEM 5 MG TABLET. PO PRN (20:46)
[2016-09-17] MEDS ORDERED: ATORVASTATIN CALCIUM 20 MG TABLET PO SCH (21:00)
[2016-09-18 04:29] LABS: BASO % 1 % (0-3); EOS % 3 % (0-3); HEMATOCRIT 43.2 % (39.0-53.0); HEMOGLOBIN 14.6 g/dL (13.0-17.5); LYMPH # 1.9 x10^3/uL (1.0-4.8); LYMPH % 24 % (24-48); MEAN CORPUSCULAR HEMOGLOBIN 31 pg (25-35); MEAN CORPUSCULAR HGB CONC 34 g/dL (31-37); MEAN CORPUSCULAR VOLUME 93 fL (79-100); MONO % 10 % (0-9); NEUT % 63 % (31-73); PLATELET COUNT 200 x10^3/uL (140-400); RED BLOOD COUNT 4.63 x10^6/uL (4.30-5.70); RED CELL DISTRIBUTION WIDTH 13.6 % (11.5-14.5)
[2016-09-18 04:45] LABS: CALCIUM 8.9 mg/dL (8.5-10.1)
[2016-09-18] MEDS: IV 1/2 NORMAL SALINE 1,000 ML IV SCH (06:30)
[2016-09-18 07:50] VITALS: BP 155/82
[2016-09-18 08:02] VITALS: BP 155/82
[2016-09-18] MEDS: ASPIRIN ENTERIC COATED 325 MG TABLET.DR. PO SCH (08:50)
[2016-09-18 08:51] VITALS: BP 155/82
[2016-09-18] MEDS: METOPROLOL TART IMMED RELEASE 25 MG TABLET PO SCH (08:51)
--- NOTE | 2016-09-18 11:07 | PDOC ---
PROGRESS NOTES Chief Complaint Chief Complaint - Chest pain Assessment -non-obstructive coronary artery disease -elevated troponin -HTN, untreated -Tobaccoism History of Present Illness History of Present Illness Patient sitting up in bed on exam this AM. Discussed the results of patient's cardiac cath. The patient stated that he wants to go home. Discussed the need to comply with HTN medications upon discharge. Probable discharge today. Vitals Vitals Vital Signs Date Time Temp Pulse Resp B/P Pulse Ox O2 Delivery O2 Flow Rate FiO2 09/18/16 08:51 61 155/82 09/18/16 08:00 Room Air 09/18/16 07:50 97.7 20 96 97.7 09/17/16 16:58 4.0 Physical Exam General: Alert, Oriented X3, Cooperative, No acute distress Heart: Regular rate, Other (No rubs or gallops) Lungs: Clear, Other (No wheezes/crackles) Abdomen: Normal bowel sounds, Soft, No tenderness Extremities: No clubbing, No cyanosis, No edema Skin: No rashes, No significant lesion Labs LABS Laboratory Tests Test 09/18/16 03:47 White Blood Count 8.0x10^3/uL (4.0-11.0) Red Blood Count 4.63x10^6/uL (4.30-5.70) Hemoglobin 14.6g/dL (13.0-17.5) Hematocrit 43.2% (39.0-53.0) Mean Corpuscular Volume 93fL (79-100) Mean Corpuscular Hemoglobin 31pg (25-35) Mean Corpuscular Hemoglobin Concent 34g/dL (31-37) Red Cell Distribution Width 13.6% (11.5-14.5) Platelet Count 200x10^3/uL (140-400) Neutrophils (%) (Auto) 63% (31-73) Lymphocytes (%) (Auto) 24% (24-48) Monocytes (%) (Auto) 10% (0-9) Eosinophils (%) (Auto) 3% (0-3) Basophils (%) (Auto) 1% (0-3) Neutrophils # (Auto) 5.0x10^3uL (1.8-7.7) Lymphocytes # (Auto) 1.9x10^3/uL (1.0-4.8) Monocytes # (Auto) 0.8x10^3/uL (0.0-1.1) Eosinophils # (Auto) 0.2x10^3/uL (0.0-0.7) Basophils # (Auto) 0.0x10^3/uL (0.0-0.2) Sodium Level 143mmol/L (136-145) Potassium Level 4.0mmol/L (3.5-5.1) Chloride Level 107mmol/L (98-107) Carbon Dioxide Level 24mmol/L (21-32) Anion Gap 12 (6-14) Blood Urea Nitrogen 10mg/dL (8-26) Creatinine 1.0mg/dL (0.7-1.3) Estimated GFR (Cockcroft-Gault) 75.0 Glucose Level 112mg/dL (70-99) Calcium Level 8.9mg/dL (8.5-10.1) Review of Systems Review of Systems Denied chest pain and SOA Denied nausea vomiting, fevers, and chills Assessment and Plan Assessmemt and Plan Assessment: - Non-obstructive coronary artery disease - Chest pain - Elevated troponin - HTN, untreated - Tobaccoism Plan: - Probable discharge today - Cardiac workup and catheterization complete--nonobstructive coronary artery disease - Prescribed Lisinopril - Continue home medications - Appreciate subspecialty input - Follow up with PCP - Tobacco cessation Problems: Comment Review of Relevant I have reviewed the following items steven (where applicable) has been applied. Labs Laboratory Tests Test 09/16/16 18:45 09/17/16 00:30 09/17/16 00:34 09/17/16 02:30 Troponin I Quantitative 1.202ng/mL (0.000-0.055) 1.881ng/mL (0.000-0.055) White Blood Count 8.9x10^3/uL (4.0-11.0) Red Blood Count 4.67x10^6/uL (4.30-5.70) Hemoglobin 14.5g/dL (13.0-17.5) Hematocrit 43.7% (39.0-53.0) Mean Corpuscular Volume 94fL (79-100) Mean Corpuscular Hemoglobin 31pg (25-35) Mean Corpuscular Hemoglobin Concent 33g/dL (31-37) Red Cell Distribution Width 13.7% (11.5-14.5) Platelet Count 193x10^3/uL (140-400) Neutrophils (%) (Auto) 62% (31-73) Lymphocytes (%) (Auto) 26% (24-48) Monocytes (%) (Auto) 9% (0-9) Eosinophils (%) (Auto) 3% (0-3) Basophils (%) (Auto) 1% (0-3) Neutrophils # (Auto) 5.5x10^3uL (1.8-7.7) Lymphocytes # (Auto) 2.3x10^3/uL (1.0-4.8) Monocytes # (Auto) 0.8x10^3/uL (0.0-1.1) Eosinophils # (Auto) 0.2x10^3/uL (0.0-0.7) Basophils # (Auto) 0.0x10^3/uL (0.0-0.2) Sodium Level 143mmol/L (136-145) Potassium Level 4.2mmol/L (3.5-5.1) Chloride Level 107mmol/L (98-107) Carbon Dioxide Level 27mmol/L (21-32) Anion Gap 9 (6-14) Blood Urea Nitrogen 11mg/dL (8-26) Creatinine 1.0mg/dL (0.7-1.3) Estimated GFR (Cockcroft-Gault) 75.0 Glucose Level 104mg/dL (70-99) Calcium Level 8.7mg/dL (8.5-10.1) Triglycerides Level 108mg/dL (0-150) Cholesterol Level 178mg/dL (0-200) LDL Cholesterol, Calculated 123mg/dL (0-100) VLDL Cholesterol, Calculated 22mg/dL (0-40) HDL Cholesterol 33mg/dL (40-60) Cholesterol/HDL Ratio 5.4 Heparin Anti-Xa Act, Unfractionated 0.18IU/mL (0.30-0.70) Test 09/17/16 09:20 09/18/16 03:47 Heparin Anti-Xa Act, Unfractionated 0.58IU/mL (0.30-0.70) White Blood Count 8.0x10^3/uL (4.0-11.0) Red Blood Count 4.63x10^6/uL (4.30-5.70) Hemoglobin 14.6g/dL (13.0-17.5) Hematocrit 43.2% (39.0-53.0) Mean Corpuscular Volume 93fL (79-100) Mean Corpuscular Hemoglobin 31pg (25-35) Mean Corpuscular Hemoglobin Concent 34g/dL (31-37) Red Cell Distribution Width 13.6% (11.5-14.5) Platelet Count 200x10^3/uL (140-400) Neutrophils (%) (Auto) 63% (31-73) Lymphocytes (%) (Auto) 24% (24-48) Monocytes (%) (Auto) 10% (0-9) Eosinophils (%) (Auto) 3% (0-3) Basophils (%) (Auto) 1% (0-3) Neutrophils # (Auto) 5.0x10^3uL (1.8-7.7) Lymphocytes # (Auto) 1.9x10^3/uL (1.0-4.8) Monocytes # (Auto) 0.8x10^3/uL (0.0-1.1) Eosinophils # (Auto) 0.2x10^3/uL (0.0-0.7) Basophils # (Auto) 0.0x10^3/uL (0.0-0.2) Sodium Level 143mmol/L (136-145) Potassium Level 4.0mmol/L (3.5-5.1) Chloride Level 107mmol/L (98-107) Carbon Dioxide Level 24mmol/L (21-32) Anion Gap 12 (6-14) Blood Urea Nitrogen 10mg/dL (8-26) Creatinine 1.0mg/dL (0.7-1.3) Estimated GFR (Cockcroft-Gault) 75.0 Glucose Level 112mg/dL (70-99) Calcium Level 8.9mg/dL (8.5-10.1) Laboratory Tests Test 09/18/16 03:47 White Blood Count 8.0x10^3/uL (4.0-11.0) Red Blood Count 4.63x10^6/uL (4.30-5.70) Hemoglobin 14.6g/dL (13.0-17.5) Hematocrit 43.2% (39.0-53.0) Mean Corpuscular Volume 93fL (79-100) Mean Corpuscular Hemoglobin 31pg (25-35) Mean Corpuscular Hemoglobin Concent 34g/dL (31-37) Red Cell Distribution Width 13.6% (11.5-14.5) Platelet Count 200x10^3/uL (140-400) Neutrophils (%) (Auto) 63% (31-73) Lymphocytes (%) (Auto) 24% (24-48) Monocytes (%) (Auto) 10% (0-9) Eosinophils (%) (Auto) 3% (0-3) Basophils (%) (Auto) 1% (0-3) Neutrophils # (Auto) 5.0x10^3uL (1.8-7.7) Lymphocytes # (Auto) 1.9x10^3/uL (1.0-4.8) Monocytes # (Auto) 0.8x10^3/uL (0.0-1.1) Eosinophils # (Auto) 0.2x10^3/uL (0.0-0.7) Basophils # (Auto) 0.0x10^3/uL (0.0-0.2) Sodium Level 143mmol/L (136-145) Potassium Level 4.0mmol/L (3.5-5.1) Chloride Level 107mmol/L (98-107) Carbon Dioxide Level 24mmol/L (21-32) Anion Gap 12 (6-14) Blood Urea Nitrogen 10mg/dL (8-26) Creatinine 1.0mg/dL (0.7-1.3) Estimated GFR (Cockcroft-Gault) 75.0 Glucose Level 112mg/dL (70-99) Calcium Level 8.9mg/dL (8.5-10.1) Medications Current Medications Aspirin (Children'S Aspirin) 324 mg 1X ONCE PO Last administered on 09/16/16 09:58; Start 09/16/16 at 09:30; Stop 09/16/16 at 09:50; Status DC Nitroglycerin (Nitrostat) 0.4 mg PRN Q5MIN PRN SL CP RATING > 09/05 Last administered on 09/16/16 10:11; Start 09/16/16 at 09:30; Stop 09/17/16 at 09:29 ; Status DC Fentanyl Citrate (Fentanyl 2ml Vial) 25 mcg PRN Q15MIN PRN IV PAIN GREATER THAN 3/10 Last administered on 09/16/16 13:53; Start 09/16/16 at 09:30; Stop at 09:29; Status DC Ondansetron HCl (Zofran) 4 mg 1X ONCE IV Last administered on 09/16/16 09:59 ; Start 09/16/16 at 10:00; Stop 09/16/16 at 10:01; Status DC Ondansetron HCl (Zofran) 4 mg PRN Q8HRS PRN IV NAUSEA/VOMITING; Start 09/16/16 at 12:45; Stop 09/17/16 at 12:44; Status DC Fentanyl Citrate (Fentanyl 2ml Vial) 50 mcg PRN Q2HR PRN IV PAIN Last administered on 09/17/16 08:25; Start 09/16/16 at 12:45; Stop 09/17/16 at 12:44 ; Status DC Acetaminophen (Tylenol) 650 mg PRN Q4HRS PRN PO FEVER; Start 09/16/16 at 12:45 ; Stop 09/17/16 at 12:44; Status DC Nitroglycerin (Nitrostat) 0.4 mg PRN Q5MIN PRN SL CHEST PAIN; Start 09/16/16 at 12:45; Stop 09/17/16 at 12:44; Status DC Zolpidem Tartrate (Ambien) 5 mg PRN QHS PRN PO INSOMNIA Last administered on 20:46; Start 09/16/16 at 19:30 Diphenhydramine HCl 25 mg 25 mg PRN Q6HRS PRN PO ITCHING Last administered on 20:46; Start 09/16/16 at 19:30 Heparin Sodium/ Dextrose 500 ml @ 0 mls/hr CONT PRN IV SEE I/O RECORD Last administered on 09/16/16 19:59; Start 09/16/16 at 19:45 Heparin Sodium (Porcine) 2,050 unit PRN Q6HRS PRN IV FOR UFH LEVEL LESS THAN 0.2 Last administered on 09/17/16 03:16; Start 09/16/16 at 19:45 Morphine Sulfate 2 mg PRN Q2HR PRN IV PAIN Last administered on 09/17/16 16:58 ; Start 09/17/16 at 11:15 Morphine Sulfate 4 mg PRN Q2HR PRN IV PAIN; Start 09/17/16 at 11:15 Nitroglycerin (Nitrostat) 0.4 mg PRN Q5MIN PRN SL CHEST PAIN; Start 09/17/16 at 11:15 Aspirin (Ecotrin) 325 mg [id number] PO Last administered on 09/18/16 08:50; Start 09/17/16 at 11:45 Metoprolol Tartrate (Lopressor) 12.5 mg BID PO Last administered on 09/18/16 08:51; Start 09/17/16 at 11:45 Atorvastatin Calcium (Lipitor) 20 mg QHS PO Last administered on 09/17/16 20: 46; Start 09/17/16 at 21:00 Info (Anti-Coagulation Monitoring By Pharmacy) 1 each PRN DAILY PRN MC SEE COMMENTS; Start 09/17/16 at 11:45 Iohexol 100 ml 100 ml STK-MED ONCE .ROUTE ; Start 09/17/16 at 12:35; Stop at 12:36; Status DC Heparin Sodium/ Sodium Chloride 1,000 ml @ As Directed STK-MED ONCE .ROUTE ; Start 09/17/16 at 12:35; Stop 09/17/16 at 12:36; Status DC Lidocaine HCl 20 ml STK-MED ONCE .ROUTE ; Start 09/17/16 at 12:35; Stop at 12:36; Status DC Nitroglycerin (Nitroglycerin) 200 mcg STK-MED ONCE .ROUTE ; Start 09/17/16 at 12 :55; Stop 09/17/16 at 12:56; Status DC Verapamil HCl (Verapamil) 5 mg STK-MED ONCE .ROUTE ; Start 09/17/16 at 12:55; Stop 09/17/16 at 12:56; Status DC Heparin Sodium (Porcine) 10,000 unit STK-MED ONCE .ROUTE ; Start 09/17/16 at 12: 55; Stop 09/17/16 at 12:56; Status DC Midazolam HCl (Versed) 5 mg STK-MED ONCE .ROUTE ; Start 09/17/16 at 12:55; Stop 09/17/16 at 12:56; Status DC Fentanyl Citrate (Fentanyl 5ml Vial) 250 mcg STK-MED ONCE .ROUTE ; Start at 12:55; Stop 09/17/16 at 12:56; Status DC Nitroglycerin (Nitroglycerin) 200 mcg 1X ONCE IART Last administered on 13:15; Start 09/17/16 at 13:15; Stop 09/17/16 at 13:16; Status DC Verapamil HCl (Verapamil) 2.5 mg 1X ONCE IART Last administered on 09/17/16 13:15; Start 09/17/16 at 13:15; Stop 09/17/16 at 13:16; Status DC Heparin Sodium (Porcine) 2,500 unit 1X ONCE IART Last administered on 13:15; Start 09/17/16 at 13:15; Stop 09/17/16 at 13:16; Status DC Midazolam HCl (Versed) 5 mg 1X ONCE IV Last administered on 09/17/16 13:15; Start 09/17/16 at 13:15; Stop 09/17/16 at 13:16; Status DC Fentanyl Citrate (Fentanyl 5ml Vial) 250 mcg 1X ONCE IV Last administered on 13:15; Start 09/17/16 at 13:15; Stop 09/17/16 at 13:16; Status DC Iohexol (Omnipaque 300 Mg/ml) 100 ml 1X ONCE IART Last administered on 13:15; Start 09/17/16 at 13:15; Stop 09/17/16 at 13:16; Status DC Lidocaine HCl 20 ml 1X ONCE IJ Last administered on 09/17/16 13:15; Start at 13:15; Stop 09/17/16 at 13:16; Status DC Info 1 each 1 each PRN DAILY PRN MC SEE COMMENTS; Start 09/17/16 at 13:15; Stop 09/19/16 at 13:14 Sodium Chloride (Iv Sodium Chloride 0.45%) 1,000 ml @ 60 mls/hr [id number] IV Last administered on 09/17/16 13:50; Start 09/17/16 at 13:50 Vitals/I & O Vital Sign - Last 24 Hours 09/17/16 09/17/16 09/17/16 09/17/16 11:00 11:12 12:33 13:15 Temp 97.9 97.9 Pulse 61 61 74 Resp 18 18 B/P 138/76 138/76 164/67 Pulse Ox 96 94 O2 Delivery Room Air Room Air 09/17/16 09/17/16 09/17/16 09/17/16 13:15 13:46 15:00 16:58 Temp 97.7 97.7 Pulse 59 63 Resp 16 18 18 B/P 142/92 Pulse Ox 97 97 97 97 O2 Delivery Room Air Nasal Cannula Room Air Room Air O2 Flow Rate 4.0 4.0 09/17/16 09/17/16 09/17/16 09/17/16 17:28 19:50 20:15 20:48 Temp 98.1 98.1 Pulse 59 59 Resp 18 20 B/P 122/66 122/48 Pulse Ox 97 96 O2 Delivery Room Air Room Air Room Air 09/17/16 09/18/16 09/18/16 09/18/16 23:05 07:50 08:00 08:51 Temp 98.0 97.7 98.0 97.7 Pulse 64 61 61 Resp 18 20 B/P 132/71 155/82 155/82 Pulse Ox 96 96 O2 Delivery Room Air Room Air Room Air Intake and Output 09/17/16 09/17/16 09/18/16 15:00 23:00 07:00 Intake Total 350 ml 400 ml Output Total 600 ml 1250 ml 675 ml Balance -600 ml -900 ml -275 ml LORIE LLAMAS III DO Sep 18, 2016 11:07
[2016-09-18] MEDS ORDERED: METO25TA4 PO (12:34)
[2016-09-18] MEDS ORDERED: ATOR20TA PO (12:35)
[2016-09-18] MEDS ORDERED: LISI2.5T PO (12:35)
== END 2016-09-18 13:05 | disposition home or self-care (01) | DRG 282 ==
LOC: ER 09:20 → 2 NORTH 10:55
PROVIDERS: ADMIT Internal Medicine; ATTEND Internal Medicine
PROC: 4A023N7 Measurement of Cardiac Sampling and Pressure, Left Heart, Percutaneous Approach (ICD-10-PCS; principal; 2016-09-17)
PROC: B2111ZZ Fluoroscopy of Multiple Coronary Arteries using Low Osmolar Contrast (ICD-10-PCS; 2016-09-17)
PROC: B2151ZZ Fluoroscopy of Left Heart using Low Osmolar Contrast (ICD-10-PCS; 2016-09-17)
DX: I21.4 Non-ST elevation (NSTEMI) myocardial infarction (principal); I10 Essential (primary) hypertension; F17.200 Nicotine dependence, unspecified, uncomplicated; I25.10 Atherosclerotic heart disease of native coronary artery without angina pectoris; Z98.890 Other specified postprocedural states; Z88.8 Allergy status to other drugs, medicaments and biological substances; Z88.5 Allergy status to narcotic agent
CPT/HCPCS: 36415; 71010; 80048; 80053; 80061; 83690; 83880; 84484; 85027; 85520; 85610; 85730; 93005; 93458; 96374; C1769; C1892; J2250; J2270; J2405; J3010; J3490; Q0163; Q9967; 99285-25

== ENCOUNTER 2020-10-14 14:00 | Emergency (ER) | payer MEDICARE ==
[~2020-10-14] VITALS: Ht 177.8 cm; Wt 86.3 kg
[~2020-10-14 14:00] MED LIST: ATOR20TA PO; LISI2.5T PO; METO25TA4 PO
--- NOTE | 2020-10-14 14:09 | PHYS DOC ---
Past Medical History Past Medical History: No Pertinent History Past Surgical History: Tonsillectomy Smoking Status: Current Every Day Smoker Alcohol Use: Sober Drug Use: None General Adult HPI: HPI: Patient is a 70 year old male patient with history of hypertension presented today complaining of diarrhea that began at 11 AM this morning. Patient is also complaining of 8 out of 10 cramping lower abdominal pain. Denies any bloody stools. Denies any nausea or vomiting. Denies any chest pain or shortness of breath. Denies any concerns for COVID-19. Review of Systems: Review of Systems: Constitutional: Denies fever or chills. [] Eyes: Denies change in visual acuity. [] HENT: Denies nasal congestion or sore throat. [] Respiratory: Denies cough or shortness of breath. [] Cardiovascular: Denies chest pain or edema. [] GI: Reports diarrhea and abdominal pain, denies nausea, vomiting, bloody stools : Denies dysuria. [] Musculoskeletal: Denies back pain or joint pain. [] Integument: Denies rash. [] Neurologic: Denies headache, focal weakness or sensory changes. [] Psychiatric: Denies depression or anxiety. [] Heart Score: Risk Factors: Risk Factors: DM, Current or recent (<one month) smoker, HTN, HLP, family history of CAD, obesity. Risk Scores: Score 0 - 3: 2.5% MACE over next 6 weeks - Discharge Home Score 4 - 6: 20.3% MACE over next 6 weeks - Admit for Clinical Observation Score 7 - 10: 72.7% MACE over next 6 weeks - Early Invasive Strategies Allergies: Allergies: Allergies Coded Allergies Type Severity Reaction Last Updated Verified calcium carbonate Allergy Intermediate Rash 09/16/16 Yes magnesium Allergy Intermediate Rash 09/16/16 Yes acetaminophen Allergy Unknown 09/17/16 Yes codeine Adverse Reaction Intermediate Nausea 09/16/16 Yes Physical Exam: PE: Constitutional: Well developed, well nourished, no acute distress, non-toxic appearance. [] HENT: Normocephalic, atraumatic, bilateral external ears normal, oropharynx moist, no oral exudates, nose normal. [] Eyes: PERRLA, EOMI, conjunctiva normal, no discharge. [] Neck: Normal range of motion, no tenderness, supple, no stridor. [] Cardiovascular:Heart rate regular rhythm, no murmur [] Lungs & Thorax: Bilateral breath sounds clear to auscultation [] Abdomen: Bowel sounds normal, soft, no tenderness, no masses, no pulsatile masses. [] Skin: Warm, dry, no erythema, no rash. [] Back: No tenderness, no CVA tenderness. [] Extremities: No tenderness, no cyanosis, no clubbing, ROM intact, no edema. [] Neurologic: Alert and oriented X 3, normal motor function, normal sensory function, no focal deficits noted. [] Psychologic: Affect normal, judgement normal, mood normal. [] EKG: EKG: [] Radiology/Procedures: Radiology/Procedures: []PROCEDURE: CT ABD PELV W/ IV CONTRST ONLY EXAM: Abdomen and pelvis CT with intravenous contrast. HISTORY: Pain. TECHNIQUE: Computed tomographic images of the abdomen and pelvis were obtained following the administration of intravenous contrast. Multiplanar reformatting was performed. *One or more of the following individualized dose reduction techniques were utilized for this examination: 1. Automated exposure control. 2. Adjustment of the mA and/or kV according to patient size. 3. Use of iterative reconstruction technique. COMPARISON: None. FINDINGS: Evaluation of the lower thorax demonstrates emphysema. There is posterior dependent and basilar atelectasis. The heart is upper normal in size to mildly enlarged. There is calcified atherosclerotic plaque involving the coronary arteries. There is a small hiatal hernia. No suspicious hepatic lesion is seen. The gallbladder, pancreas, spleen and adrenal glands are unremarkable. There are bilateral extrarenal pelves. There are small simple appearing cysts within the right kidney. There is lateral right renal cortical scarring. There are 2 mm nonobstructing right renal stones. The bladder is unremarkable. The prostate is unremarkable. There is no appendicitis. There is no bowel obstruction. There is distal colonic diverticulosis. There is no convincing diverticulitis. There is aortobiiliac atherosclerosis. 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 No aneurysm or dissection is seen. There is no lymphadenopathy. There are degenerative changes involving the thoracolumbar spine. There is grade 1 anterolisthesis with bilateral pars defects at L5-S1. There is central canal stenosis primarily at T12-L1 and L4-L5. IMPRESSION: 1. Colonic diverticulosis. 2. Hepatic steatosis. 3. Right nephrolithiasis and small simple appearing right renal cyst. Follow-up is not routinely recommended for simple cysts. 4. Small hiatal hernia. 5. Grade 1 anterolisthesis with pars defects at L5-S1. Electronically signed by: Bhakti De Souza MD (10/14/2020 3:45 PM) [id number] DICTATED and SIGNED BY: BHAKTI DE SOUZA MD DATE: 10/14/20 [id number] 0 Course & Med Decision Making: Course & Med Decision Making Pertinent Labs and Imaging studies reviewed. (See chart for details) This is a 70-year-old male patient presented to the ED today complaining of diarrhea and abdominal pain, symptoms began at 11 AM this morning. He states yesterday he had some fried chicken which he believes started his symptoms CBC, CMP, lipase, UA, CT of the abdomen and pelvic with no acute findings. Discharge to home. Supportive care measures recommended. Dragon Disclaimer: Dragon Disclaimer: This electronic medical record was generated, in whole or in part, using a voice recognition dictation system. Departure Departure Impression: Primary Impression: Diarrhea Qualified Codes: R19.7 - Diarrhea, unspecified Disposition: 01 DC HOME SELF CARE/HOMELESS Condition: STABLE Referrals: MALENA LINDSEY MD (PCP) follow up next week Patient Instructions: Diarrhea Additional Instructions: You were evaluated in the emergency room for diarrhea. We recommend you consider eating a clear liquid diet which includes chicken noodle soup, Gatorade, Sprite, Jell-O, clear tea, etc. Follow-up with your doctor next week, come back to the ED at any point symptoms worsen. ASH SANTOS APRN Oct 14, 2020 14:09
[2020-10-14] MEDS ORDERED: DICYCLOMINE HCL 10 MG CAPSULE PO ONE (14:15)
[2020-10-14] MEDS ORDERED: FAMOTIDINE 20 MG/2 ML VIAL IVP ONE (14:15)
[2020-10-14 14:37] LABS: BASO # 0.1 x10^3/uL (0.0-0.2); BASO % 1 % (0-3); EOS # 0.3 x10^3/uL (0.0-0.7); EOS % 3 % (0-3); HEMATOCRIT 43.4 % (39.0-53.0); HEMOGLOBIN 14.8 g/dL (13.0-17.5); LYMPH # 1.2 x10^3/uL (1.0-4.8); LYMPH % 11 % (24-48); MEAN CORPUSCULAR HEMOGLOBIN 32 pg (25-35); MEAN CORPUSCULAR HGB CONC 34 g/dL (31-37); MEAN CORPUSCULAR VOLUME 95 fL (79-100); MONO # 0.8 x10^3/uL (0.0-1.1); MONO % 7 % (0-9); NEUT # 8.6 x10^3/uL (1.8-7.7); NEUT % 79 % (31-73); PLATELET COUNT 207 x10^3/uL (140-400); RED BLOOD COUNT 4.58 x10^6/uL (4.30-5.70); RED CELL DISTRIBUTION WIDTH 13.6 % (11.5-14.5)
[2020-10-14 14:49] LABS: CALCIUM 9.4 mg/dL (8.5-10.1); GFR 74.1; POTASSIUM 4.4 mmol/L (3.5-5.1)
[2020-10-14 14:55] LABS: ALBUMIN 3.9 g/dL (3.4-5.0); ALBUMIN/GLOBULIN RATIO 1.1 (1.0-1.7); TOTAL BILIRUBIN 0.4 mg/dL (0.2-1.0); TOTAL PROTEIN 7.5 g/dL (6.4-8.2)
[2020-10-14] MEDS ORDERED: IOHEXOL 300 MG/ML 100ML VIAL. IV ONE (15:00)
[2020-10-14 15:30] LABS: BILIRUBIN,URINE NEGATIVE (NEG); CLARITY,URINE CLEAR; COLOR,URINE YELLOW; NITRITE,URINE NEGATIVE (NEG); PROTEIN,URINE NEGATIVE (NEG-TRACE); UROBILINOGEN,URINE 0.2 mg/dL (0.2 mg/dL)
[2020-10-14 15:37] LABS: AMPHETAMINE/METHAMPHETAMINE NEG (NEG); BARBITURATES NEG (NEG); BENZODIAZEPINES NEG (NEG); CANNABINOIDS NEG (NEG); COCAINE NEG (NEG); METHADONE NEG (NEG); OPIATES NEG (NEG); PHENCYCLIDINE NEG (NEG)
[2020-10-14 15:47] LABS: HYALINE CASTS, URINE OCCASIONAL /HPF; SPERM,URINE PRESENT /HPF
--- NOTE | 2020-10-14 15:48 | RAD ---
EXAM: Abdomen and pelvis CT with intravenous contrast. HISTORY: Pain. TECHNIQUE: Computed tomographic images of the abdomen and pelvis were obtained following the administ ration of intravenous contrast. Multiplanar reformatting was performed. *One or more of the following individualized dose reduction techniques were utilized for this examina tion: 1. Automated exposure control. 2. Adjustment of the mA and/or kV according to patient size. 3. Use of iterative reconstruction technique. COMPARISON: None. FINDINGS: Evaluation of the lower thorax demonstrates emphysema. There is posterior dependent and bas ilar atelectasis. The heart is upper normal in size to mildly enlarged. There is calcified atheroscle rotic plaque involving the coronary arteries. There is a small hiatal hernia. No suspicious hepatic l esion is seen. The gallbladder, pancreas, spleen and adrenal glands are unremarkable. There are bilateral extrarenal pelves. There are small simple appearing cysts within the right kidney . There is lateral right renal cortical scarring. There are 2 mm nonobstructing right renal stones. T he bladder is unremarkable. The prostate is unremarkable. There is no appendicitis. There is no bowel obstruction. There is distal colonic diverticulosis. There is no convincing diverticulitis. There is aortobiiliac atherosclerosis. 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 No aneurysm or dissection is seen. There is no lymphadenopathy. There are degenerative changes involving the thoracolumbar spine. There is grade 1 anterolisthesis with bilateral pars defects at L 5-S1. There is central canal stenosis primarily at T12-L1 and L4-L5. IMPRESSION: 1. Colonic diverticulosis. 2. Hepatic steatosis. 3. Right nephrolithiasis and small simple appearing right renal cyst. Follow-up is not routinely laron mmended for simple cysts. 4. Small hiatal hernia. 5. Grade 1 anterolisthesis with pars defects at L5-S1. Electronically signed by: Bhakti De Souza MD (10/14/2020 3:45 PM) [id number]
[2020-10-14 15:50] LABS: BACTERIA,URINE 0 /HPF (0-FEW)
[2020-10-14 16:16] VITALS: BP 155/69
--- NOTE | 2020-10-15 14:54 | NUR ---
IP: Informed pt of negative COVID test. Pt verbalized understanding.
== END 2020-10-14 16:37 | disposition home or self-care (01) ==
LOC: ER 14:00
DX: R19.7 Diarrhea, unspecified (principal); Z20.822 Contact with and (suspected) exposure to COVID-19; I10 Essential (primary) hypertension; F17.200 Nicotine dependence, unspecified, uncomplicated; K57.30 Diverticulosis of large intestine without perforation or abscess without bleeding; K76.0 Fatty (change of) liver, not elsewhere classified; N20.0 Calculus of kidney; K44.9 Diaphragmatic hernia without obstruction or gangrene; Z88.5 Allergy status to narcotic agent; Z88.6 Allergy status to analgesic agent; Z88.8 Allergy status to other drugs, medicaments and biological substances
CPT/HCPCS: 36415; 74177; 80053; 80307; 81001; 83690; 85025; 96374; 99285; C9803; G0480; J3490; Q9967; U0003